=== PATIENT | female | born 1980 | race Caucasian/White ===

== ENCOUNTER → 2024-12-23 | Outpatient (CLI) | payer BC ==
[2024-12-23 09:45] LABS: ESTRADIOL 1811.6 PG/ML; PROGESTERONE 50.52 NG/ML
== END ==
LOC: M LAB 08:29
PROVIDERS: ATTEND Obstetrics & Gynecology Reproductive Endocrinology
DX: Z31.49 Encounter for other procreative investigation and testing (principal)

== ENCOUNTER → 2024-12-28 | Outpatient (CLI) | payer BC ==
[2024-12-28 08:43] LABS: HCG, SERUM QUANTITATIVE < 2.6 MIU/ML (<4.2)
[2024-12-28 08:48] LABS: PROGESTERONE 42.84 NG/ML
== END ==
LOC: M LAB 07:26
PROVIDERS: ATTEND Obstetrics & Gynecology Reproductive Endocrinology
DX: Z32.00 Encounter for pregnancy test, result unknown (principal)

== ENCOUNTER → 2025-03-17 | Outpatient (CLI) | payer BC ==
[2025-03-17 09:35] LABS: ESTRADIOL 1104.4 PG/ML
[2025-03-17 09:36] LABS: PROGESTERONE 31.19 NG/ML
== END ==
LOC: M LAB 08:17
PROVIDERS: ATTEND Obstetrics & Gynecology Reproductive Endocrinology
DX: Z31.49 Encounter for other procreative investigation and testing (principal)

== ENCOUNTER → 2025-03-22 | Outpatient (CLI) | payer BC ==
[2025-03-22 08:19] LABS: HCG, SERUM QUANTITATIVE < 2.6 MIU/ML (<4.2)
[2025-03-22 08:24] LABS: PROGESTERONE 36.42 NG/ML
== END ==
LOC: M LAB 07:21
PROVIDERS: ATTEND Obstetrics & Gynecology Reproductive Endocrinology
DX: Z32.00 Encounter for pregnancy test, result unknown (principal)